=== PATIENT | male | born 1995 | race Caucasian/White ===

== ENCOUNTER 2021-03-07 20:35 | Emergency (ER) | payer MEDICAID ==
[~2021-03-07] VITALS: Ht 177.8 cm; Wt 63.6 kg
[~2021-03-07 20:35] MED LIST: CYCL-1 PO; DIAZ5TAB PO
[2021-03-07 20:56] VITALS: BP 138/89
[2021-03-07] MEDS ORDERED: ketorolac trometh inj. 60 MG/2 ML VIAL IM ONE (21:30)
[2021-03-07] MEDS ORDERED: amox tr/potassium clavulanate 875/125mg TAB PO ONE (21:30)
[2021-03-07] MEDS ORDERED: AMOX-422 PO (21:34)
== END 2021-03-07 22:14 | disposition home or self-care (01) ==
LOC: ER 22:14
DX: J32.9 Chronic sinusitis, unspecified (principal); R05 Cough; R51.9 Headache, unspecified; R09.81 Nasal congestion; R09.89 Other specified symptoms and signs involving the circulatory and respiratory systems; Z79.2 Long term (current) use of antibiotics; Z79.899 Other long term (current) drug therapy
CPT/HCPCS: 96372; 99283; J1885

== ENCOUNTER 2021-10-15 21:38 | Emergency (ER) | payer MEDICAID ==
[~2021-10-15] VITALS: Ht 177.8 cm; Wt 75.0 kg
[2021-10-15 21:42] VITALS: BP 121/79
[2021-10-15] MEDS ORDERED: AMOX-117 PO (23:00)
[2021-10-15] MEDS ORDERED: amox tr/potassium clavulanate 875/125mg TAB PO ONE (23:00)
[2021-10-15] MEDS ORDERED: HYDR-3965 PO (23:01)
== END 2021-10-15 23:09 | disposition home or self-care (01) ==
LOC: ER 21:39
DX: K08.89 Other specified disorders of teeth and supporting structures (principal); K02.9 Dental caries, unspecified; Z79.2 Long term (current) use of antibiotics; Z79.899 Other long term (current) drug therapy
CPT/HCPCS: 99283

== ENCOUNTER 2023-12-30 15:41 | Emergency (ER) | payer MEDICAID ==
[~2023-12-30] VITALS: Ht 177.8 cm; Wt 71.0 kg
[2023-12-30 16:40] VITALS: BP 130/72; PULSE 69; RESP 16; TEMP 99.2; O2SAT 96
[2023-12-30] MEDS ORDERED: CLIN300C54 PO (16:54)
[2023-12-30] MEDS ORDERED: HYDR-3965 PO (16:54)
== END 2023-12-30 17:03 | disposition home or self-care (01) ==
LOC: ER 15:42
DX: K04.7 Periapical abscess without sinus (principal); Z79.899 Other long term (current) drug therapy
CPT/HCPCS: 99283

== ENCOUNTER 2024-07-09 09:15 | Emergency (ER) | payer MEDICAID ==
[~2024-07-09] VITALS: Ht 177.8 cm; Wt 66.5 kg
[2024-07-09 09:55] VITALS: BP 124/70; PULSE 68; RESP 16; TEMP 97.7; O2SAT 98
== END 2024-07-09 09:57 | disposition home or self-care (01) ==
LOC: ER 09:16
DX: N48.89 Other specified disorders of penis (principal); R21 Rash and other nonspecific skin eruption
CPT/HCPCS: 99281